=== PATIENT | female | born 1955 | race Caucasian/White ===

== ENCOUNTER 2019-03-12 09:45 | Outpatient (CLI) | payer OTHER | END 2019-03-12 09:59 | disposition home or self-care (01) | LOC: NUCLEAR 09:45 | DX: E78.89 Other lipoprotein metabolism disorders (principal); E03.8 Other specified hypothyroidism; M54.5 Low back pain; I10 Essential (primary) hypertension; Z01.810 Encounter for preprocedural cardiovascular examination; K21.9 Gastro-esophageal reflux disease without esophagitis ==